=== PATIENT | female | born 1985 | race Caucasian/White ===

== ENCOUNTER 2018-10-24 05:47 | Emergency (ER) | payer OTHER ==
[~2018-10-24] VITALS: Ht 172.7 cm; Wt 102.1 kg
[2018-10-24 06:00] LABS: URINE BILIRUBIN NEGATIVE (Negative); URINE BLOOD 3+ (Negative); URINE CLARITY CLEAR; URINE COLOR YELLOW; URINE GLUCOSE-RANDOM NEGATIVE (Negative); URINE KETONES TRACE (Negative); URINE LEUKOCYTES-REFLEX NEGATIVE (Negative); URINE NITRITE-REFLEX NEGATIVE (Negative); URINE PROTEIN 1+ (Negative); URINE SPECIFIC GRAVITY >= 1.030 (1.005-1.030); URINE UROBILINOGEN 0.2 E.U./dl (0.2-1.0)
[2018-10-24 06:05] LABS: URINE WBC-REFLEX 0-5 Rare /HPF (0-5)
[2018-10-24 06:06] LABS: BACTERIA-REFLEX 1-9 Few /HPF (None Seen); CASTS None Seen /LPF (None Seen); CRYSTALS None Seen /LPF (None Seen); MUCUS 4-6 Moderate strn/LPF (None Seen); SQUAMOUS 4-10 Moderate /LPF (0-3)
[2018-10-24 06:09] LABS: ABSOLUTE BASOPHILS 0.1 thou/uL (0.0-0.2); ABSOLUTE EOSINOPHILS 0.1 thou/uL (0.0-0.7); ABSOLUTE LYMPHOCYTES 2.5 thou/uL (0.8-5.3); ABSOLUTE MONOCYTES 0.4 thou/uL (0.0-1.2); ABSOLUTE NEUTROPHILS 11.2 thou/uL (1.6-8.1); BASOPHILS 0.7 %; EOSINOPHILS 0.4 %; HEMATOCRIT 44.5 % (37.0-47.0); HEMOGLOBIN 15.3 gm/dL (12.0-15.0); LYMPHOCYTES 17.6 %; MCH 32.9 pg (26.0-34.0); MCHC 34.3 g/dL (28.0-37.0); MCV 95.7 fL (80.0-100.0); MONOCYTES 3.1 %; NUCLEATED RBCS 0 /100WBC; PLATELET COUNT* 252 thou/uL (150-400); POLYS 78.2 %; RBC 4.65 mil/uL (4.20-5.00); RDW-CV 13.4 % (10.5-14.5); WBC 14.3 thou/uL (4.0-11.0)
[2018-10-24 06:18] LABS: CALCIUM 9.5 mg/dL (8.5-10.1); CREATININE 0.9 mg/dL (0.6-1.3); POTASSIUM 3.9 mmol/L (3.5-5.1)
[2018-10-24 08:44] LABS: AMP/METHAMP Negative (Negative); BARBITURATES Negative (Negative); BENZODIAZEPINES Negative (Negative); COCAINE Negative (Negative); METHADONE Negative (Negative); OPIATES POSITIVE (Negative); PCP Negative (Negative); THC POSITIVE (Negative)
[2018-10-24] MEDS ORDERED: NORCO 5-325 TA1 EAC1 PO (09:29)
[2018-10-24] MEDS ORDERED: PHENERGAN 25 MG25 M1 PO (09:29)
[2018-10-24] MEDS ORDERED: TORADOL 10 MG T10 MG PO (09:29)
[2018-10-24] MEDS ORDERED: PERCOCET 5-3251 EACH PO (09:35)
[2018-10-24 09:37] VITALS: BP 116/78
== END 2018-10-24 09:33 | disposition home or self-care (01) ==
LOC: M.ERS 05:47
PROVIDERS: Emergency Medicine
DX: N20.1 Calculus of ureter (principal); N23 Unspecified renal colic; Z87.442 Personal history of urinary calculi

== ENCOUNTER 2020-11-30 19:47 | Emergency (ER) | payer OTHER ==
[~2020-11-30] VITALS: Ht 172.7 cm; Wt 92.5 kg
[~2020-11-30 19:47] MED LIST: NORCO 5-325 TA1 EAC1 PO; PERCOCET 5-3251 EACH PO; PHENERGAN 25 MG25 M1 PO; TORADOL 10 MG T10 MG PO
[2020-11-30 19:54] VITALS: BP 150/99
[2020-11-30 20:35] LABS: ABSOLUTE EOSINOPHILS 0.1 thou/uL (0.0-0.7); ABSOLUTE MONOCYTES 0.5 thou/uL (0.0-1.2); ABSOLUTE NEUTROPHILS 5.8 thou/uL (1.6-8.1); BASOPHILS 0.5 %; EOSINOPHILS 0.7 %; HEMATOCRIT 40.3 % (37.0-47.0); HEMOGLOBIN 14.2 gm/dL (12.0-15.0); LYMPHOCYTES 23.7 %; MCH 33.3 pg (26.0-34.0); MCHC 35.3 g/dL (28.0-37.0); MCV 94.2 fL (80.0-100.0); MONOCYTES 6.4 %; MPV 8.4 fl. (7.2-11.1); NUCLEATED RBCS 0 /100WBC; PLATELET COUNT* 238 thou/uL (150-400); POLYS 68.7 %; RBC 4.28 mil/uL (4.20-5.00); RDW-CV 12.9 % (10.5-14.5); WBC 8.4 thou/uL (4.0-11.0)
[2020-11-30 20:42] LABS: CALCIUM 8.7 mg/dL (8.5-10.1); CREATININE 0.7 mg/dL (0.6-1.3)
[2020-11-30] MEDS ORDERED: PERCOCET 5-3251 EACH PO (22:16)
[2020-11-30] MEDS ORDERED: DOXYCYCLINE 10100 MG PO (22:16)
[2020-11-30] MEDS ORDERED: TORADOL 10 MG T10 MG PO (22:16)
[2020-11-30 22:31] VITALS: BP 146/70
== END 2020-11-30 22:32 | disposition left against medical advice (07) ==
LOC: M.ERS 19:47 → M.TBA-ER 21:56 → M.ERS 21:56
PROVIDERS: Physician Assistant
DX: L03.211 Cellulitis of face (principal); Z88.5 Allergy status to narcotic agent; Z87.442 Personal history of urinary calculi; Z79.899 Other long term (current) drug therapy